=== PATIENT | male | born 1950 | race Caucasian/White ===

== ENCOUNTER 2017-04-22 14:07 | Emergency (ER) | payer MEDICARE ==
[~2017-04-22] VITALS: Ht 182.9 cm; Wt 97.5 kg
[2017-04-22 14:31] VITALS: BP 164/79
[2017-04-22] MEDS ORDERED: IBUPROFEN 600 MG TABLET PO ONE ×2 (15:30→15:40)
== END 2017-04-22 16:50 | disposition home or self-care (01) ==
LOC: ER 14:09
DX: S16.1XXA Strain of muscle, fascia and tendon at neck level, initial encounter (principal); I10 Essential (primary) hypertension; V43.62XA Car passenger injured in collision with other type car in traffic accident, initial encounter; Y93.89 Activity, other specified; Y92.89 Other specified places as the place of occurrence of the external cause; Y99.9 Unspecified external cause status
CPT/HCPCS: A4606; Z7610